=== PATIENT | female | born 1945 | race Caucasian/White ===

== ENCOUNTER 2016-05-27 01:55 | Emergency (ER) | payer MEDICARE, MEDICAID ==
--- NOTE | 2016-05-27 02:12 | Emergency Department Record ---
History of Present Illness - General Chief Complaint: Abdominal Pain Stated Complaint: ABD PAIN Time Seen by Provider: 05/27/16 02:08 Source: Patient Mode of Arrival: Ambulatory Limitations: No limitations - History of Present Illness Initial Comments: 71 yo female presents now feeling well for several days. She has developed urinary frequency and noted blood in urine tonight. No fevers or chills. No nausea, vomiting or diarrhea. She had cough and congestion last week but that is mostly resolved. No history of renal stones. She feels and urgency and pressure to urinate at times. No flank or abdominal pain at this time. PCP Chandrika Crook MD Complaint: Abdominal pain Onset/Timin -: Days(s) Radiation: None Migration to: No migration Severity: Moderate Quality: Aching Improves With: Nothing Worsens With: Nothing Associated Symptoms: Denies other symptoms, Nausea - Related Data Home Medications Medication Instructions Recorded Confirmed Last Taken Ascorbic Acid [Vitamin C] 500 mg PO DAILY 09/13/14 05/27/16 05/26/16 Cholecalciferol (Vitamin D3) 1,000 unit PO DAILY 09/13/14 05/27/16 05/26/16 [Vitamin D3] Magnesium 200 mg PO DAILY 09/13/14 05/27/16 05/26/16 Ferrous Sulfate [Iron] 325 mg PO DAILY 03/06/16 05/27/16 05/26/16 Previous Rx's Medication Instructions Recorded Ondansetron [Zofran Odt] 4 mg SL .Q4-6H PRN #12 tab.rapdis 03/06/16 Nitrofurantoin Lajas [Macrobid] 100 mg PO BID #14 capsule 05/27/16 Allergies Allergy/AdvReac Type Severity Reaction Status Date / Time iodine Allergy Intermediate NAUSEA AND Verified 05/27/16 02:07 VOMITING Headache Travel Screening - Travel/Exposure Within Last 30 Days Have you traveled within the last 30 days?: No - Travel/Exposure Within Last Year Have you traveled outside the [place] in the last year?: No - Additonal Travel Details Have you been exposed to anyone with a communicable illness?: No - Travel Symptoms Symptom Screening: None Review of Systems Constitutional: Denies: Chills, Fever, Malaise, Weakness Eyes: Denies: Eye discharge ENT: Reports: Congestion. Denies: Throat pain Respiratory: Reports: Cough (improved) Cardiovascular: Denies: Chest pain, Palpitations, Syncope Endocrine: Denies: Fatigue Gastrointestinal: Reports: Abdominal pain, Other (darker stools since starting iron). Denies: Constipation, Diarrhea, Hematemesis, Hematochezia, Nausea, Vomiting Genitourinary: Denies: Dysuria, Hematuria Musculoskeletal: Denies: Arthralgia, Back pain, Myalgia, Neck pain Skin: Denies: Bruising, Change in color Neurological: Denies: Confusion, Headache, Weakness Psychiatric: Denies: Anxiety Hematological/Lymphatic: Denies: Blood Clots, Easy bleeding, Easy bruising, Swollen glands Past Medical History - SOCIAL HISTORY Smoking Status: Never smoker Alcohol Use: None Drug Use: None - RESPIRATORY Hx Respiratory Disorders: Yes Hx Asthma: Yes Hx Bronchitis: Yes - CARDIOVASCULAR Hx Cardio Disorders: Yes Hx Edema: Yes Hx Hypertension: Yes Comment:: high cholesterol - NEURO Hx Neuro Disorders: No - GI Hx GI Disorders: Yes Hx Reflux: Yes Comment:: hemorrhoid - Hx Genitourinary Disorders: No - ENDOCRINE Hx Endocrine Disorders: Yes - MUSCULOSKELETAL Hx Musculoskeletal Disorders: No - PSYCH Hx Psych Problems: No - HEMATOLOGY/ONCOLOGY Hx Hematology/Oncology Disorders: No Family Medical History Any Significant Family History?: No Hx Cancer: Father, Brother/Sister *Cancer Comment: liver, lung Hx Dementia: Mother Hx Diabetes: Mother Hx HTN: Brother/Sister Hx Liver Disease: Brother/Sister *Liver Comment: cancer Physical Exam - General General Appearance: Alert, Oriented x3, Cooperative, No acute distress Limitations: No limitations - Head Head exam: Normal inspection - Eye Eye exam: Normal appearance, PERRL. negative: Conjunctival injection, Periorbital swelling - ENT ENT exam: Normal exam, Mucous membranes moist Ear exam: Normal external inspection Nasal Exam: Normal inspection Mouth exam: Normal external inspection Teeth exam: Normal inspection Throat exam: Normal inspection - Neck Neck exam: Normal inspection, Full ROM. negative: Tenderness - Respiratory Respiratory exam: Normal lung sounds bilaterally. negative: Accessory muscle use, Respiratory distress, Rhonchi, Stridor, Wheezes - Cardiovascular Cardiovascular Exam: Regular rate, Normal rhythm, Normal heart sounds - GI/Abdominal GI/Abdominal exam: Soft - Rectal Rectal exam: Deferred - exam: Deferred - Extremities Extremities exam: Normal inspection, Full ROM, Normal capillary refill. negative: Tenderness - Back Back exam: Reports: Normal inspection, Full ROM. Denies: CVA tenderness (R), CVA tenderness (L), Muscle spasm, Rash noted, Tenderness - Neurological Neurological exam: Alert, Normal gait, Oriented X3, Reflexes normal - Psychiatric Psychiatric exam: Normal affect, Normal mood. negative: Agitated, Anxious - Skin Skin exam: Dry, Intact, Normal color, Warm Course Vital Signs 05/27/16 05/27/16 01:56 02:05 Temperature 98.3 F 98.3 F Pulse Rate 112 H Pulse Rate [ 112 H Pulse Ox Probe] Respiratory 16 16 Rate Blood Pressure 158/87 Blood Pressure 158/87 [Left Arm] Pulse Ox 97 95 - Reevaluation(s) Reevaluation #1: The CBC was reviewed. No acute changes The UA is positive Nitrite, LE, WBC and bacteria CW UTI Her abdomen is very soft and not tender at this time She will be provided antibiotics and a culture will be sent of the urine. 05/27/16 02:35 Reevaluation #2: BMP reviewed Mild decrease in K DC on antibiotics with recommendations for follow up and home care 05/27/16 02:44 Medical Decision Making - Lab Data Result diagrams: 05/27/16 02:21 05/27/16 02:21 Disposition Disposition: Discharge Clinical Impression: Hypokalemia Urinary tract infection Qualifiers: Urinary tract infection type: acute cystitis Hematuria presence: with hematuria Qualified Code(s): N30.01 - Acute cystitis with hematuria Disposition: Home, Self-Care Condition: (1) Good Instructions: Urinary Tract Infection in Women (ED), Hypokalemia (ED) Additional Instructions: Call your doctor for close follow up this week Return if you have fever, pain, worse, vomiting or concerns Prescriptions: Nitrofurantoin Lajas [Macrobid] 100 mg PO BID #14 capsule Forms: Patient Portal Access Time of Disposition: 02:38
[2016-05-27 02:15] LABS: URINE APPEARANCE SL CLOUDY; URINE BILIRUBIN SMALL (NEGATIVE); URINE BLOOD LARGE (NEGATIVE); URINE COLOR RED; URINE GLUCOSE (UA) NEGATIVE (NEGATIVE); URINE KETONE NEGATIVE (NEGATIVE); URINE LEUKOCYTE ESTERASE LARGE (NEGATIVE); URINE NITRITE POSITIVE (NEGATIVE)
[2016-05-27 02:17] LABS: URINE PROTEIN 300 mg/dL (NEGATIVE)
[2016-05-27 02:27] LABS: BASO % 0.1 % (0-6); EOS % 0.3 % (0-6); GRAN % 67.5 % (47-80); HEMOGLOBIN 13.2 gm/dl (11.6-16.0); LYMPH % 22.4 % (16-45); MEAN CORPUSCULAR HEMOGLOBIN 27.8 pg (27-33); MEAN CORPUSCULAR HGB CONC 34.7 g/dl (32-36); MONO % 9.7 % (0-9); PLATELET COUNT 182 K/uL (130-400); RED BLOOD COUNT 4.75 M/uL (3.80-5.40); RED CELL DISTRIBUTION WIDTH 14.1 % (11.5-14.5)
[2016-05-27 02:30] LABS: URINE EPITHELIAL CELLS 0 - 2 (FEW); URINE RBC >50 (NONE SEEN); URINE WBC 36 - 50 (0-2/hpf)
[2016-05-27 02:32] LABS: URINE BACTERIA 1+
[2016-05-27] MEDS ORDERED: NITROFURANTOIN MONO 100 MG CAPSULE PO ONE (02:35)
[2016-05-27 02:39] LABS: ANION GAP 12.9 (7-16); BLOOD UREA NITROGEN 14 mg/dL (7-17); CARBON DIOXIDE 26.1 mmol/L (22-30); CREATININE 0.7 mg/dL (0.52-1.04); EST GLOMERULAR FILTRATION RATE > 60 ml/min; GLUCOSE,RANDOM 105 mg/dL (70-110)
[2016-05-27 02:40] LABS: INR 0.96; PARTIAL THROMBOPLASTIN TIME 28.8 SECONDS (24.5-39.1); PROTHROMBIN TIME (PATIENT) 10.9 SECONDS (9.5-12.1)
[2016-05-27] MEDS: POTASSIUM CHLORIDE 20 MEQ TABLET PO ONE ×2 (02:46→02:48)
[2016-05-27] MEDS ORDERED: POTASSIUM BICARB./CIT AC 25 MEQ EFF.TAB PO STA (02:48)
== END 2016-05-27 03:01 | disposition home or self-care (01) ==
LOC: ER 01:55
DX: N30.01 Acute cystitis with hematuria (principal); E87.6 Hypokalemia; R11.0 Nausea; I10 Essential (primary) hypertension
CPT/HCPCS: 80048; 81001; 85025; 85610; 85730; 99283; 99284

== ENCOUNTER 2017-10-10 12:46 | Emergency (ER) | payer MEDICARE, MEDICAID ==
--- NOTE | 2017-10-10 13:10 | Emergency Department Record ---
History of Present Illness - General Chief complaint: Female Urogenital Problem Stated complaint: UTI Time Seen by Provider: 10/10/17 12:48 Source: Patient Mode of Arrival: Ambulatory Limitations: No limitations - History of Present Illness Initial comments: 72 yo female presents with urinary discomfort for 2 days. No fevers, chills, nausea, vomiting or diarrhea. No changes in bowel movements. No blood in the stools. Her urine has darkened. She did see a small amount of blood in the urine. She has some urgency. She has history of UTI in the past. MD Complaint: Dysuria -: Days(s) (2) Radiation: Non-radiating, Suprapubic Severity: Mild Quality: Aching Consistency: Intermittent Improves with: None Worsens with: None Associated Symptoms: Other - Related Data Previous Rx's Medication Instructions Recorded Nitrofurantoin Monohyd/M-Cryst 100 mg PO BID #14 capsule 10/10/17 [Macrobid 100 mg Capsule] Allergies Allergy/AdvReac Type Severity Reaction Status Date / Time iodine Allergy Intermediate NAUSEA AND Unverified 10/10/17 13:08 VOMITING Headache Review of Systems Constitutional: Denies: Chills, Fever, Malaise, Weakness Eyes: Denies: Eye discharge ENT: Denies: Congestion, Throat pain Respiratory: Denies: Cough Cardiovascular: Denies: Chest pain, Palpitations, Syncope Endocrine: Denies: Fatigue Gastrointestinal: Reports: As per HPI, Abdominal pain. Denies: Diarrhea, Nausea , Vomiting Genitourinary: Reports: Dysuria, Frequency, Hematuria, Urgency. Denies: Abnormal menses, Incontinence, Retention Musculoskeletal: Denies: Arthralgia, Back pain, Myalgia, Neck pain Skin: Denies: Bruising, Change in color, Rash Neurological: Denies: Headache, Numbness, Tremors, Vertigo, Weakness Psychiatric: Denies: Anxiety Hematological/Lymphatic: Denies: Blood Clots, Easy bleeding, Easy bruising, Swollen glands Past Medical History - SOCIAL HISTORY Smoking Status: Never smoker Drug Use: None - RESPIRATORY Hx Respiratory Disorders: Yes Hx Asthma: Yes Hx Bronchitis: Yes - CARDIOVASCULAR Hx Cardio Disorders: Yes Hx Edema: Yes Hx Hypertension: Yes Comment:: high cholesterol - NEURO Hx Neuro Disorders: No - GI Hx GI Disorders: Yes Hx Reflux: Yes Comment:: hemorrhoid - Hx Genitourinary Disorders: No - ENDOCRINE Hx Endocrine Disorders: Yes - MUSCULOSKELETAL Hx Musculoskeletal Disorders: No - PSYCH Hx Psych Problems: No - HEMATOLOGY/ONCOLOGY Hx Hematology/Oncology Disorders: No Family Medical History Hx Cancer: Father, Brother/Sister *Cancer Comment: liver, lung Hx Dementia: Mother Hx Diabetes: Mother Hx HTN: Brother/Sister Hx Liver Disease: Brother/Sister *Liver Comment: cancer Physical Exam - General General Appearance: Alert, Oriented x3, Cooperative, No acute distress Limitations: No limitations - Head Head exam: Normal inspection - Eye Eye exam: Normal appearance, PERRL. negative: Conjunctival injection, Scleral icterus - ENT ENT exam: Normal exam, Mucous membranes moist Ear exam: Normal external inspection Nasal Exam: Normal inspection Mouth exam: Normal external inspection - Neck Neck exam: Normal inspection - Respiratory Respiratory exam: Normal lung sounds bilaterally. negative: Respiratory distress - Cardiovascular Cardiovascular Exam: Regular rate, Normal rhythm, Normal heart sounds - GI/Abdominal GI/Abdominal exam: Soft, Tenderness (very soft, very mild tenderness suprapubic) . negative: Distended, Guarding, Rebound, Rigid - Rectal Rectal exam: Deferred - exam: Deferred - Extremities Extremities exam: Normal inspection - Back Back exam: Denies: CVA tenderness (R), CVA tenderness (L), Paraspinal tenderness , Tenderness, Vertebral tenderness - Neurological Neurological exam: Alert, Oriented X3 - Psychiatric Psychiatric exam: Normal affect, Normal mood. negative: Agitated, Anxious - Skin Skin exam: Dry, Intact, Normal color, Warm Course Vital Signs 10/10/17 13:03 Pulse Rate [ 95 H Pulse Ox Probe] Respiratory 16 Rate Blood Pressure 185/109 [Left Arm] Pulse Ox 95 - Reevaluation(s) Reevaluation #1: 10/10/17 14:34 The UTI is consistent with UTI Macrobid prescribed Disposition Disposition: Discharge Clinical Impression: UTI (urinary tract infection) Disposition: Home, Self-Care Condition: (1) Good Instructions: Urinary Tract Infection in Women (ED) Additional Instructions: Return to ED if your symptoms worsen or if you have any new concerns. Take the Macrobid provided today as directed. Call your family doctor to schedule the next available appointment for a recheck. Review the final Emergency Record and test results with your doctor on follow up You will have a culture of the urine that will be available in about 3 days Prescriptions: Nitrofurantoin Monohyd/M-Cryst [Macrobid 100 mg Capsule] 100 mg PO BID #14 capsule Forms: Patient Portal Access Time of Disposition: 14:35 Quality - Quality Measures Quality Measures: N/A - Blood Pressure Screening Does Patient Have Any of the Following: No Blood Pressure Classification: Hypertensive Reading Systolic Measurement: 185 Diastolic Measurement: 102 Screening for High Blood Pressure: < Pre-Hypertensive BP, F/U Documented > [ [id number]] Pre-Hypertensive Follow-up Interventions: Referral to alternative/primary care provider.
[2017-10-10 13:28] LABS: URINE APPEARANCE CLOUDY; URINE BILIRUBIN NEGATIVE (NEGATIVE); URINE BLOOD LARGE (NEGATIVE); URINE COLOR YELLOW; URINE GLUCOSE (UA) NEGATIVE (NEGATIVE); URINE KETONE NEGATIVE (NEGATIVE); URINE LEUKOCYTE ESTERASE LARGE (NEGATIVE); URINE NITRITE NEGATIVE (NEGATIVE); URINE UROBILINOGEN 0.2 E.U./dL (0.20 - 1.00)
[2017-10-10 13:38] LABS: URINE EPITHELIAL CELLS 0 - 2 (FEW)
[2017-10-10 13:39] LABS: URINE BACTERIA FEW
[2017-10-10] MEDS ORDERED: NITROFURANTOIN MONO 100 MG CAPSULE PO ONE (14:34)
== END 2017-10-10 15:14 | disposition home or self-care (01) ==
LOC: ER 12:46
DX: N39.0 Urinary tract infection, site not specified (principal); R31.0 Gross hematuria; I10 Essential (primary) hypertension
CPT/HCPCS: 81001; 99282